=== PATIENT | female | born 1950 | race Caucasian/White ===

== ENCOUNTER 2020-01-17 09:57 | Observation (INO) | payer MEDICARE ==
[~2020-01-17] VITALS: Ht 165.1 cm; Wt 63.0 kg
[2020-01-17 10:40] LABS: BASO % 1 % (0-3); EOS % 1 % (0-3); HEMATOCRIT 40.3 % (36.0-47.0); LYMPH # 1.1 x10^3/uL (1.0-4.8); LYMPH % 34 % (24-48); MEAN CORPUSCULAR HEMOGLOBIN 35 pg (25-35); MEAN CORPUSCULAR HGB CONC 35 g/dL (31-37); MEAN CORPUSCULAR VOLUME 102 fL (79-100); MONO # 0.3 x10^3/uL (0.0-1.1); MONO % 9 % (0-9); NEUT # 1.8 x10^3/uL (1.8-7.7); NEUT % 56 % (31-73); PLATELET COUNT 274 x10^3/uL (140-400); RED BLOOD COUNT 3.97 x10^6/uL (3.50-5.40); RED CELL DISTRIBUTION WIDTH 12.4 % (11.5-14.5); WHITE BLOOD COUNT 3.3 x10^3/uL (4.0-11.0)
--- NOTE | 2020-01-17 10:48 | EKG ---
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
[2020-01-17 10:53] LABS: CALCIUM 8.7 mg/dL (8.5-10.1); CREATININE 0.8 mg/dL (0.6-1.0); GFR 70.7; POTASSIUM 4.1 mmol/L (3.5-5.1)
[2020-01-17 10:56] LABS: ALBUMIN 3.4 g/dL (3.4-5.0); ALBUMIN/GLOBULIN RATIO 0.6 (1.0-1.7); MAGNESIUM 2.2 mg/dL (1.8-2.4); TOTAL BILIRUBIN 0.2 mg/dL (0.2-1.0); TOTAL PROTEIN 8.9 g/dL (6.4-8.2)
[2020-01-17 11:19] LABS: PROTHROMBIN TIME PATIENT 11.5 SEC (11.7-14.0)
--- NOTE | 2020-01-17 11:19 | RAD ---
CT HEAD WO CONTRAST History:Stroke, weakness Comparison: None. Technique: Noncontrast CT imaging was performed of the head. Exposure: One or more of the following individualized dose reduction techniques were utilized for this examination: 1. Automated exposure control 2. Adjustment of the mA and/or kV according to patient size 3. Use of iterative reconstruction technique. Findings: No acute extra-axial or parenchymal hemorrhage is identified. There is no significant intra-axial mass effect, midline shift, or extra-axial fluid collection. The guillen-white differentiation of the major vascular territories is preserved. Ventricular size is within normal limits. There is mild supratentorial involutional change somewhat greater of the frontal lobes. The mastoid air cells and the visualized paranasal sinuses are aerated. No acute calvarial abnormality is identified. There is slight increased density of the right supraclinoid internal carotid artery compared with the left. There is atherosclerotic calcification of the carotid siphons bilaterally. Impression: 1. No acute intracranial hemorrhage is identified. There is slight increased density of the right supraclinoid internal carotid compared with the left, nonspecific findings otherwise difficult to characterize. CTA would more accurately characterize for patency of vessels as per clinical indication. Critical results were discussed with ZAHIRA CUETO at 01/17/2020 11:14 AM. Electronically signed by: Artie Sheets MD (01/17/2020 11:16 AM) [facility]
[2020-01-17] MEDS ORDERED: IOHEXOL 300 MG/ML 100ML VIAL. IV ONE (11:30)
--- NOTE | 2020-01-17 12:14 | RAD ---
CTA of the head and neck with contrast 01/17/2020 Clinical history: Weakness. Slurred speech. Technique: After the intravenous administration of 75 cc of Omnipaque 300, contiguous, 0.625 mm axial sections were obtained through the upper chest, neck and head. Multiplanar 3-D MIP and volume rendered 3-D reconstructed images were obtained. One or more of the following individualized dose reduction techniques were utilized for this study: 1. Automated exposure control. 2. Adjustment of the mA and/or kV according to patient size. 3. Use of iterative reconstruction technique. Findings: Comparison is made to patient's CT scan of the head performed earlier today. Scattered atherosclerotic plaque formation seen involving the thoracic aortic arch and its branches. The origins of the brachiocephalic, left common carotid and left subclavian arteries from the thoracic aortic arch are patent. The origin of the right common carotid artery and both vertebral arteries are patent. The common carotid arteries are patent. Mild atheromatous/atherosclerotic plaque formation seen involving both carotid bifurcations. No hemodynamically significant stenosis is seen. The internal carotid arteries within the neck are patent. The left vertebral artery is dominant. Both vertebral arteries demonstrate normal antegrade flow. No area stenosis or occlusion is seen. Intracranially, scattered atherosclerotic plaque formation is seen involving the cavernous portions of both internal carotid arteries. No hemodynamically significant stenosis or area of occlusion is seen. The basilar artery is patent. The anterior, middle and posterior cerebral arteries and their branches are within normal limits. No area of stenosis or occlusion is seen. No intracranial aneurysm is noted. The major dural venous sinuses are patent. No area of abnormal contrast enhancement is seen. No acute soft tissue abnormality is seen involving the neck. Degenerative changes are seen involving the uncovertebral and facet joints throughout the cervical disc spaces. Impression: 1. Mild atheromatous/atherosclerotic plaque formation is seen involving both carotid bifurcations. No hemodynamically significant stenosis is seen. 2. No intracranial stenosis or area of occlusion is seen. Stenosis calculation for CTA are based on measurement of the distal internal carotid artery diameter in accordance with the NASCET methodology. Electronically signed by: Ifeanyi Vu MD (01/17/2020 12:11 PM) [id number]
--- NOTE | 2020-01-17 12:37 | HP ---
ADMIT DATE: 01/17/2020 CHIEF COMPLAINT: Weakness. HISTORY OF PRESENT ILLNESS: The patient is a pleasant middle-aged female who states she could not get out of bed this morning. Her ex- came when she called him. She states he had to pick her up off the floor. The patient is now in the ER room 1. We have done a CAT scan, it does not show any acute changes, but it appears she probably had a TIA. She also has a slight elevation of her AST and she does admit to drinking vodka each day, although she states she has not an alcoholic. I discussed the case with ER physician. It might be best going to admit the patient and consult Neurology. It should be noted that the patient rates her symptoms at 5/5. She has associated weakness, has been occurring off and on for a day or so and she describes as very irritating and anxiety producing. PAST MEDICAL HISTORY: Obsessive compulsive disorder and she washes her hands and feet all the time. ALLERGIES: None. FAMILY HISTORY: Diabetes. SOCIAL HISTORY: She drinks vodka a day, but states she has nonalcoholic. 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 She has been twice. Her son is a physician family law legal assistant. MEDICATIONS: Reviewed, please refer to the MRAD. REVIEW OF SYSTEMS: GENERAL: No history of weight change, weakness or fevers. SKIN: No bruising, hair changes or rashes. EYES: No blurred, double or loss of vision. NOSE AND THROAT: No history of nosebleeds, hoarseness or sore throat. HEART: No history of palpitations, chest pain or shortness of breath on exertion. LUNGS: Denies cough, hemoptysis, wheezing or shortness of breath. GASTROINTESTINAL: Denies changes in appetite, nausea, vomiting, diarrhea or constipation. GENITOURINARY: No history of frequency, urgency, hesitancy or nocturia. NEUROLOGIC: Denies history of numbness, tingling, tremor or weakness. PSYCHIATRIC: No history of panic, anxiety or depression. ENDOCRINE: No history of heat or cold intolerance, polyuria or polydipsia. EXTREMITIES: Denies muscle weakness, joint pain, pain on walking or stiffness. PHYSICAL EXAMINATION: VITALS: Within normal limits and are stable. GENERAL: No apparent distress. Alert and oriented. HEENT: Normal cephalic atraumatic, external auditory canals are patent EYES: Extraocular muscles are intact, pupils are equally round and reactive to light and accommodation MUSCULOSKELETAL: Well developed, well nourished, good range of motion ENDOCRINE: No thyromegaly was palpated LYMPHATICS: No cervical chain or axillary nodes were noted HEMATOPOIETIC: No bruising NECK: Supple, no JVD, no thyromegaly was noted. LUNGS: Clear to auscultation in all lung smiley without rhonchi or wheezing. HEART: RRR, S1, S2 present. Peripheral pulses intact, no obvious murmurs were noted. ABDOMEN: Soft, nontender. Positive bowel sounds no organomegaly, normal bowel sounds. EXTREMITIES: Without any cyanosis, clubbing, or edema. Pedal pulses intact, Homans sign is negative. NEUROLOGIC: Normal speech, normal tone. A & O x3, moves all extremities, no obvious focal deficits. PSYCHIATRIC: Normal affect, normal mood. Stable. SKIN: Her skin is very dry. VASCULAR: Good capillary refill, neurovascular bundle appears to be intact. LABORATORY DATA: White count 3.3, hemoglobin 14, platelets 274. Electrolytes are normal. AST is high at 50. Troponin is 0. CT of the head does not show any acute changes. ASSESSMENT AND PLAN: Transient ischemic attack symptoms. The patient will be admitted. We will give her daily aspirin, consult PT, OT, consult Neurology. Home medications, deep vein thrombosis prophylaxis. Full code. We will monitor for alcohol withdrawal if she needs that protocol, but she states she does not normally have any withdrawal. JAMESON MENDOZA DO DR: LOPEZ/liam JOB#: [id number] / [id number]
--- NOTE | 2020-01-17 12:40 | PHYS DOC ---
Past Medical History Past Medical History: Arthritis Past Surgical History: No Surgical History Smoking Status: Never Smoker Alcohol Use: Heavy Additional Information: DAILY VODKA/OJ General Adult EDM: Chief Complaint: NEURO SYMPTOMS/DEFICITS HPI: HPI: Patient is a 69-year-old female who presents to the emergency room after having neurologic deficits. Patient states that she woke up this morning and was unable to get out of bed. She called her son who states that she was having a hard time putting words together and seemed very confused. He states that she had slurred speech. He states that they are unsure which side was weak but that she just could not get out of bed. This has progressively improved since onset. Review of Systems: Review of Systems: General: Denies fever, chills, sweats, fatigue Eyes: Denies drainage, blurred vision, eye redness HENT: Denies rhinorrhea, sore throat, earache Respiratory: Denies cough, shortness of breath, wheezing Cardiac: Denies edema, palpitations, chest pain GI: Denies abdominal pain, Nausea, vomiting MSK: Denies back pain, neck pain Skin: Denies rash, jaundice Neuro: Denies headache, dizziness. Reports speech difficulty and weakness Psychiatric: Denies SI/HI Heart Score: Risk Factors: Risk Factors: DM, Current or recent (<one month) smoker, HTN, HLP, family history of CAD, obesity. Risk Scores: Score 0 - 3: 2.5% MACE over next 6 weeks - Discharge Home Score 4 - 6: 20.3% MACE over next 6 weeks - Admit for Clinical Observation Score 7 - 10: 72.7% MACE over next 6 weeks - Early Invasive Strategies Current Medications: Current Medications Medications (Trade) Dose Ordered Sig/Keon Start Time Stop Time Status Last Admin Dose Admin Iohexol (Omnipaque 300 Mg/ml) 75 ml 1X ONCE 01/17/20 11:30 01/17/20 11:31 DC 01/17/20 11:23 75 ML Allergies: Allergies: Allergies Coded Allergies Type Severity Reaction Last Updated Verified No Known Drug Allergies 01/17/20 No Physical Exam: PE: General: Awake, alert, NAD. Well Nourished, well hydrated. Cooperative HEENT: Atraumatic, EOMI, PERRL, airway patent, moist oral mucosa Neck: Supple, trachea midline Respiratory: CTA bilaterally, normal effort, no wheezing/crackles CV: RRR, no murmur, cap refill <2 GI: Soft, nondistended, nontender, no masses MSK: No obvious deformities Skin: Warm, dry, intact Neuro: A&O x3, speech NL, 5/5 strength in BUE/BLE distally and proximally, CN 2- 12 intact other than mild left facial droop spares forehead, cerebellar testing normal Psych: Normal affect, normal mood, not suicidal or homicidal Current Patient Data: Labs: Laboratory Tests Test 01/17/20 10:25 White Blood Count 3.3 x10^3/uL (4.0-11.0) L Red Blood Count 3.97 x10^6/uL (3.50-5.40) Hemoglobin 14.0 g/dL (12.0-15.5) Hematocrit 40.3 % (36.0-47.0) Mean Corpuscular Volume 102 fL (79-100) H Mean Corpuscular Hemoglobin 35 pg (25-35) Mean Corpuscular Hemoglobin Concent 35 g/dL (31-37) Red Cell Distribution Width 12.4 % (11.5-14.5) Platelet Count 274 x10^3/uL (140-400) Neutrophils (%) (Auto) 56 % (31-73) Lymphocytes (%) (Auto) 34 % (24-48) Monocytes (%) (Auto) 9 % (0-9) Eosinophils (%) (Auto) 1 % (0-3) Basophils (%) (Auto) 1 % (0-3) Neutrophils # (Auto) 1.8 x10^3/uL (1.8-7.7) Lymphocytes # (Auto) 1.1 x10^3/uL (1.0-4.8) Monocytes # (Auto) 0.3 x10^3/uL (0.0-1.1) Eosinophils # (Auto) 0.0 x10^3/uL (0.0-0.7) Basophils # (Auto) 0.0 x10^3/uL (0.0-0.2) Prothrombin Time 11.5 SEC (11.7-14.0) L Prothrombin Time INR 0.9 (0.8-1.1) Activated Partial Thromboplast Time 38 SEC (24-38) Sodium Level 143 mmol/L (136-145) Potassium Level 4.1 mmol/L (3.5-5.1) Chloride Level 104 mmol/L (98-107) Carbon Dioxide Level 30 mmol/L (21-32) Anion Gap 9 (6-14) Blood Urea Nitrogen 13 mg/dL (7-20) Creatinine 0.8 mg/dL (0.6-1.0) Estimated GFR (Cockcroft-Gault) 70.7 BUN/Creatinine Ratio 16 (6-20) Glucose Level 90 mg/dL (70-99) Calcium Level 8.7 mg/dL (8.5-10.1) Magnesium Level 2.2 mg/dL (1.8-2.4) Total Bilirubin 0.2 mg/dL (0.2-1.0) Aspartate Amino Transferase (AST) 50 U/L (15-37) H Alanine Aminotransferase (ALT) 35 U/L (14-59) Alkaline Phosphatase 96 U/L (46-116) Troponin I Quantitative < 0.017 ng/mL (0.000-0.055) Total Protein 8.9 g/dL (6.4-8.2) H Albumin 3.4 g/dL (3.4-5.0) Albumin/Globulin Ratio 0.6 (1.0-1.7) L Laboratory Tests 01/17/20 10:25 Laboratory Tests 01/17/20 10:25 Vital Signs: Vital Signs Date Time Temp Pulse Resp B/P (MAP) Pulse Ox O2 Delivery O2 Flow Rate FiO2 01/17/20 10:15 98.4 90 18 165/77 (106) 99 Room Air 98.4 EKG: EKG: [] Radiology/Procedures: Radiology/Procedures: [] Course & Med Decision Making: Course & Med Decision Making Pertinent Labs and Imaging studies reviewed. (See chart for details) Patient is 69-year-old female who presents to the emergency room with neurologic deficits that have progressively improved. Patient is outside the window for a stroke protocol. CT head was done and she does have a prominent right ICA so a CT angios done. Patient is not a candidate at this time for TPA due to onset being greater than 3 and half hours ago. It is likely that she is having a TIA. Patient will be admitted and will be evaluated by neurology. Kely Disclaimer: Kely Disclaimer: This electronic medical record was generated, in whole or in part, using a voice recognition dictation system. Departure Departure Impression: Primary Impression: TIA (transient ischemic attack) Disposition: 09 ADMITTED INPT THIS HOSP Condition: IMPROVED Referrals: NO PCP (PCP) ZAHIRA CUETO MD Jan 17, 2020 12:40
[2020-01-17 14:00] VITALS: BP 172/84
--- NOTE | 2020-01-17 18:28 | NUR ---
Patient arrived on the unit via gurney at 1420. She's awake, alert, oriented x 4, denies pain. NIHSS 2 upon transfer. She was oriented to the unit policies and procedures, call light placed within reach. Family member at bedside. Addendum: 01/17/20 at 1840 by KIERA FONTAINE RN Patient arrived at 1320.
--- NOTE | 2020-01-17 18:36 | NUR ---
At 1500, patient's family member approached this nurse and verbalized that the patient would leave AMA. This nurse spoke to the patient and told her that the neurologist has been paged and notified about the referral. The patient said that she might not wait and wanted to go home since she didn't really want to get admitted. At 1605, she signed AMA, nurse endless track vehicle supervisor and Dr. Da Silva notified by Diane HANNA. She left the unit at 1615, awake, alert, oriented x 4, on room air accompanied by family members.
--- NOTE | 2020-01-17 18:55 | NUR ---
Admission history/medical history not performed, patient decided to go home AMA.
== END 2020-01-17 16:15 | disposition left against medical advice (07) ==
LOC: ER 09:57 → 5 NORTH 13:14
PROVIDERS: ADMIT Internal Medicine; ATTEND Internal Medicine
DX: G45.9 Transient cerebral ischemic attack, unspecified (principal); F42.9 Obsessive-compulsive disorder, unspecified; F41.9 Anxiety disorder, unspecified
CPT/HCPCS: 36415; 70450; 70496; 70498; 80053; 83735; 84484; 85025; 85610; 85730; 93005; 97161; 99285; G0378; G0379; Q9967

== ENCOUNTER → 2020-02-07 | Outpatient (CLI) | payer MEDICARE ==
[2020-01-17 14:00] VITALS: BP 172/84
[~2020-02-07] MED LIST: BUPIVACAINE MPF 0.5% 10 ML VIAL. INT ART ONE; IOHEXOL 300 MG/ML 50 ML VIAL. INT ART ONE; LIDOCAINE 1% Multi-Dose 20 ML VIAL. ID ONE; methylPREDNISolone ACETATE 40 MG/ML VIAL. INT ART ONE
--- NOTE | 2020-02-07 15:26 | KCIC ---
ARTHROCENT MJR JT ASP/INJ RT History: Pain Technique: Patient was informed of the risks to include pain, infection, bleeding, allergic reaction. All questions were answered. Patient signed a written consent form for right hip injection for pain therapy. Patient was placed in supine position on the fluoroscopy table. The external skin site overlying right hip was prepped and draped in the usual sterile fashion. Betadine was utilized for cleansing solution. 1% lidocaine was utilized for local anesthesia to the depth of the bone. 22-gauge spinal needle was advanced under fluoroscopy to depth of the bone. Mixture of 4 cc anesthetic and 80 mg Depo-Medrol were injected during fluoroscopic visualization. Needle was removed. There were no immediate complications. Bandage was applied. Right hip degenerative changes. Fluoroscopy time 42 seconds Impression: 1. Successful right hip steroid injection. Electronically signed by: Kaushik Kelley DO (02/07/2020 3:23 PM) [id number]
== END | disposition home or self-care (01) ==
LOC: KCIC 13:00
PROVIDERS: ATTEND Orthopaedic Surgery
DX: M25.551 Pain in right hip (principal); Z88.1 Allergy status to other antibiotic agents; Z79.899 Other long term (current) drug therapy; Z72.89 Other problems related to lifestyle
CPT/HCPCS: 20610; 77002; J1030; J3490; Q9967

== ENCOUNTER → 2020-06-25 | Outpatient (CLI) | payer MEDICARE ==
[~2020-06-25] MED LIST changes: +BUPIVACAINE MPF 0.5% 10 ML VIAL. IJ ONE; -BUPIVACAINE MPF 0.5% 10 ML VIAL. INT ART ONE
--- NOTE | 2020-06-25 15:01 | KCIC ---
IR ARTHROCENTESIS ASP/INJ RIGHT History: Pain Technique: Patient was informed of the risks to include pain, infection, bleeding, allergic reaction. All questions were answered. Patient signed a written consent form for right hip injection for pain therapy. Patient was placed in supine position on the fluoroscopy table. The external skin site overl marlen right hip was prepped and draped in the usual sterile fashion. Betadine was utilized for cleansi ng solution. 1% lidocaine was utilized for local anesthesia to the depth of the bone. 22-gauge spinal needle was advanced under fluoroscopy to depth of the bone. Small amount contrast was injected confi rming intra-articular location. Mixture of 4 cc bupivacaine and 80 mg Depo-Medrol were injected durin g fluoroscopic visualization. Needle was removed. There were no immediate complications. Bandage was applied. Fluoroscopy time 22 seconds. One spot fluoroscopic image saved. Impression: 1. Successful right hip steroid injection. Electronically signed by: Kaushik Kelley DO (06/25/2020 2:59 PM) [id number]
== END | disposition home or self-care (01) ==
LOC: KCIC 13:54
PROVIDERS: ATTEND Orthopaedic Surgery
DX: M25.551 Pain in right hip (principal); Z79.899 Other long term (current) drug therapy; Z72.89 Other problems related to lifestyle; Z88.1 Allergy status to other antibiotic agents
CPT/HCPCS: 20610; 77002; J1030; J3490; Q9967